=== PATIENT | female | born 1965 | race Caucasian/White ===

== ENCOUNTER 2020-07-06 23:01 | Emergency (ER) | payer BC ==
[2020-07-07 01:08] LABS: BASOPHILS % (AUTO) 0.4 % (0.0-5.0); EOSINOPHILS % (AUTO) 1.1 % (0.0-8.0); HEMATOCRIT 40.3 % (36-48); LYMPHOCYTES % (AUTO) 34.6 % (21.0-51.0); MEAN CORPUSCULAR HEMOGLOBIN 29.5 pg (27.0-33.0); MEAN CORPUSCULAR HGB CONC 33.3 g/dL (32.0-36.0); MEAN CORPUSCULAR VOLUME 88.8 fL (79-99); MONOCYTES % (AUTO) 5.8 % (3.0-13.0); NEUTROPHILS % (AUTO) 57.7 % (40.0-77.0); PLATELET COUNT (AUTO) 229 K/uL (130-400); RED BLOOD CELL COUNT(AUTO) 4.54 MIL/uL (4.00-5.50); RED CELL DISTRIBUTION WIDTH 12.8 % (11.0-15.5); WHITE BLOOD COUNT (AUTO) 7.2 K/uL (4.8-10.8)
[2020-07-07 01:09] LABS: APPEARANCE,URINE Clear (CLEAR); BILIRUBIN,URINE Negative (NEGATIVE); COLOR,URINE Yellow (YELLOW); GLUCOSE, URINE (UA) Negative (NEGATIVE); KETONES,URINE Negative (NEGATIVE); LEUKOCYTE ESTERASE ,URINE Negative (NEGATIVE); NITRATE,URINE Negative (NEGATIVE); OCCULT BLOOD,URINE Small (NEGATIVE); PH,URINE 5.5 (5.0-8.0); PROTEIN,URINE Negative (NEGATIVE); UROBILINOGEN,URINE 0.2 mg/dL (0.2-1.0)
[2020-07-07 01:16] LABS: RBC,URINE 0-1 /HPF (0-1); WBC,URINE 0-1 /HPF (0-1)
[2020-07-07 01:17] LABS: BACTERIA,URINE Rare /HPF (None Seen); SQUAMOUS EPITHELIAL CELL,UR Few /HPF (0-2)
[2020-07-07 01:20] LABS: CREATININE 0.8 mg/dL (0.5-1.5)
[2020-07-07 01:22] LABS: ALBUMIN 4.1 g/dL (3.5-5.0); BILIRUBIN,TOTAL 0.4 mg/dL (0.2-1.0); TOTAL PROTEIN, SERUM 7.7 g/dL (6.0-8.3)
== END 2020-07-07 01:53 | disposition home or self-care (01) ==
LOC: EDH 23:01
DX: G43.809 Other migraine, not intractable, without status migrainosus (principal); Z20.828 Contact with and (suspected) exposure to other viral communicable diseases; Z90.49 Acquired absence of other specified parts of digestive tract
CPT/HCPCS: 36415; 80053; 81001; 85025; 87426

== ENCOUNTER → 2022-07-06 | Outpatient (CLI) | payer OTHER | END | disposition home or self-care (01) | LOC: RAH 09:00 | PROVIDERS: ATTEND Physician Assistant Medical | DX: Z12.31 Encounter for screening mammogram for malignant neoplasm of breast (principal) | CPT/HCPCS: 77067 ==

== ENCOUNTER 2022-09-14 06:12 | Observation (INO) | payer OTHER ==
[~2022-09-14] VITALS: Ht 172.7 cm; Wt 66.8 kg
[2022-09-14] MEDS ORDERED: IPRATROPIUM/ALBUTEROL SULFATE 3 ML SOLUTION IH ONE (08:30)
[2022-09-14 08:41] LABS: BASOPHILS % (AUTO) 0.7 % (0.0-5.0); EOSINOPHILS % (AUTO) 11.8 % (0.0-8.0); HEMATOCRIT 38.9 % (36-48); LYMPHOCYTES % (AUTO) 37.3 % (21.0-51.0); MEAN CORPUSCULAR HEMOGLOBIN 28.8 pg (27.0-33.0); MEAN CORPUSCULAR HGB CONC 33.9 g/dL (32.0-36.0); MEAN CORPUSCULAR VOLUME 84.7 fL (79-99); MONOCYTES % (AUTO) 5.7 % (3.0-13.0); NEUTROPHILS % (AUTO) 44.2 % (40.0-77.0); PLATELET COUNT (AUTO) 234 K/uL (130-400); RED BLOOD CELL COUNT(AUTO) 4.59 MIL/uL (4.00-5.50); RED CELL DISTRIBUTION WIDTH 13.3 % (11.0-15.5); WHITE BLOOD COUNT (AUTO) 5.9 K/uL (4.8-10.8)
[2022-09-14 08:45] LABS: CREATININE 0.8 mg/dL (0.5-1.5); POTASSIUM 3.6 mmol/L (3.5-5.1)
[2022-09-14 08:50] LABS: ALBUMIN 3.7 g/dL (3.5-5.0); TOTAL PROTEIN, SERUM 7.7 g/dL (6.0-8.3)
[2022-09-14] MEDS ORDERED: IPRATROPIUM 0.5 MG/2.5 ML INH IH ONE ×2 (08:51→13:00)
[2022-09-14] MEDS ORDERED: ALBUTEROL 0.083% 2.5 MG/3 ML INH IH ONE ×2 (08:51→13:00)
[2022-09-14] MEDS ORDERED: IOHEXOL 350 MG/ML 100ML INFUS..BTL IV ONE (09:07)
[2022-09-14] MEDS ORDERED: CEFTRIAXONE 1G VIAL IVP ONE (11:30)
[2022-09-14] MEDS ORDERED: SOLU-MEDROL 125MG VIAL IVP ONE (13:00)
[2022-09-14] MEDS ORDERED: ACETAMINOPHEN 325 MG TAB PO PRN ×4 (14:00)
[2022-09-14] MEDS ORDERED: ALBUTEROL 0.083% 2.5 MG/3 ML INH IH SCH (14:00)
[2022-09-14] MEDS: IPRATROPIUM 0.5 MG/2.5 ML INH IH SCH ×3 (14:00→22:34)
[2022-09-14] MEDS: ALBUTEROL 0.083% 2.5 MG/3 ML INH IH SCH ×3 (14:00→22:33)
[2022-09-14] MEDS ORDERED: IPRATROPIUM/ALBUTEROL SULFATE 3 ML SOLUTION IH SCH (14:00)
[2022-09-14] MEDS ORDERED: ONDANSETRON 4MG INJ IV PRN ×2 (14:00)
[2022-09-14] MEDS: SOLU-MEDROL 40MG VIAL IVP SCH ×2 (14:00→20:37)
[2022-09-14 14:23] LABS: ABG BASE EXCESS -0.3 mmol/L (-2.0-3.0); ABG HCO3 23.5 mmol/L (21.0-28.0); ABG OXYGEN SATURATION 93.7 % (95.0-99.0); ABG PCO2 36 mmHg (32-45)
[2022-09-14] MEDS: DOXYCYCLINE 100MG+NS 250ML 250 ML IV SCH (14:30)
[2022-09-14] MEDS: 0.9%NACL 1000ML 1,000 ML IV SCH (14:30)
[2022-09-14 17:10] VITALS: BP 120/72
[2022-09-14 20:00] VITALS: BP 141/84
[2022-09-14] MEDS: FAMOTIDINE 20MG VIAL IV SCH (20:37)
[2022-09-14] MEDS ORDERED: FAMOTIDINE 20MG VIAL IV SCH (21:00)
[2022-09-15] VITALS (7 sets, daily range): BP systolic 119–139; BP diastolic 69–80
[2022-09-15] MEDS: DOXYCYCLINE 100MG+NS 250ML 250 ML IV SCH ×2 (02:19→13:12)
[2022-09-15] MEDS: IPRATROPIUM 0.5 MG/2.5 ML INH IH SCH ×4 (02:24→14:26)
[2022-09-15] MEDS: ALBUTEROL 0.083% 2.5 MG/3 ML INH IH SCH ×6 (02:24→22:53)
[2022-09-15] MEDS: 0.9%NACL 1000ML 1,000 ML IV SCH (04:46)
[2022-09-15] MEDS: SOLU-MEDROL 40MG VIAL IVP SCH ×5 (06:10→23:18)
[2022-09-15] MEDS: FAMOTIDINE 20MG VIAL IV SCH ×2 (09:37→20:36)
[2022-09-15] MEDS: ENOXAPARIN SODIUM 40 MG/0.4 ML SYRINGE SQ SCH (09:38)
[2022-09-15] MEDS: SODIUM CHLORIDE 3% FOR INHALATION 4 ML/AMP VIAL.NEB IH SCH ×3 (16:00→22:53)
[2022-09-15] MEDS ORDERED: LACTULOSE 20 GM/30 ML UDCUP ONE (21:49)
[2022-09-15] MEDS ORDERED: LACTULOSE 20 GM/30 ML UDCUP PO PRN (22:00)
[2022-09-16] MEDS: DOXYCYCLINE 100MG+NS 250ML 250 ML IV SCH ×2 (02:19→14:31)
[2022-09-16] MEDS: SODIUM CHLORIDE 3% FOR INHALATION 4 ML/AMP VIAL.NEB IH SCH ×4 (02:25→14:23)
[2022-09-16] MEDS: ALBUTEROL 0.083% 2.5 MG/3 ML INH IH SCH ×4 (02:25→14:23)
[2022-09-16 05:09] VITALS: BP 134/81
[2022-09-16] MEDS: SOLU-MEDROL 40MG VIAL IVP SCH ×2 (05:39→12:04)
[2022-09-16 08:00] VITALS: BP 135/85
[2022-09-16] MEDS: ENOXAPARIN SODIUM 40 MG/0.4 ML SYRINGE SQ SCH (10:24)
[2022-09-16] MEDS: FAMOTIDINE 20MG VIAL IV SCH (10:24)
[2022-09-16 12:00] VITALS: BP 130/87
[2022-09-16 16:00] VITALS: BP 153/96
[2022-09-16] MEDS ORDERED: FLUT1AER IH (17:11)
[2022-09-16] MEDS ORDERED: DEXA6TAB PO (17:11)
[2022-09-16] MEDS ORDERED: ALBU18HF7 IH (17:11)
[2022-09-16] MEDS ORDERED: DOXY100T2 PO (17:11)
[2022-09-16] MEDS ORDERED: SODI15VI IH (17:11)
[2022-09-16] MEDS ORDERED: INHA1SPA48 MC (17:11)
[2022-09-16] MEDS ORDERED: ALBU2.5V2 IH (17:11)
== END 2022-09-16 17:30 | disposition home or self-care (01) ==
LOC: EDH 06:12 → EDHIP 13:52 → 3CH 16:54
PROVIDERS: ADMIT Internal Medicine; ATTEND Internal Medicine
DX: J20.9 Acute bronchitis, unspecified (principal); Z20.822 Contact with and (suspected) exposure to COVID-19; T15.02XA Foreign body in cornea, left eye, initial encounter; H10.32 Unspecified acute conjunctivitis, left eye; J06.9 Acute upper respiratory infection, unspecified; R06.00 Dyspnea, unspecified; Z90.49 Acquired absence of other specified parts of digestive tract; Z79.899 Other long term (current) drug therapy
CPT/HCPCS: 96376 ×3; 96365; 96366 ×3; 96375; 99285; 80053; 82803; 85025; 87040 ×2; 87071; 87205; 87804 ×2; 83605; 36415; 87635; 71045; 71275; 36600; 94640 ×13; 94664; 84145; 96372 ×2; 96361; G0378 ×47; C9803; J3490 ×9; J2930; J0696; J2920 ×6; Q9967; J1650 ×2